=== PATIENT | male | born 1985 | race Caucasian/White ===

== ENCOUNTER → 2016-11-28 | Day surgery (SDC) | payer OTHER ==
[~2016-11-28] MED LIST: BUPIVACAINE/EPINEPHRINE 0.5% PF 30 ML VIAL ONE; IBUP800T23 PO; KETOROLAC TROMETHAMINE 30 MG/ML (IVP) VIAL IV PUSH ONE; LACTATED RINGER'S 1000 ML INJ 1,000 ML ONE; LORT5TAB PO; MEPERIDINE HCL 25 MG/ML VIAL ONE; MIDAZOLAM HCL 2 MG/2 ML VIAL ONE; MORPHINE SULFATE 4 MG/ML INJ ONE; ONDANSETRON HCL 4 MG/2 ML VIAL IV PUSH ONE; PROPOFOL 200 MG/20 ML AMP IV ONE; Z.0.NO CURRENT MEDS; ceFAZolin INJ 1,000 MG VIAL ONE
--- NOTE | 2016-11-29 07:00 | TN ---
cc: MILTON JOHNSON DATE OF SURGERY: 11/28/2016 PREOPERATIVE DIAGNOSIS Left knee medial meniscal tear. POSTOPERATIVE DIAGNOSIS Left knee medial meniscal tear. PROCEDURE Left knee arthroscopic partial medial meniscectomy. SURGEON Dr. Milton Johnson ANESTHESIA General. ESTIMATED BLOOD LOSS Less than 10 cc. TOURNIQUET TIME Zero minutes. COMPLICATIONS None. JUSTIFICATION This patient is a 31-year-old male who injured his left knee. He has had persistence of pain in regards to his condition with failure of conservative treatment. Clinical exam as well as MRI confirmed the above-named findings. The patient was counseled as to the risks, benefits and alternatives to the above-named proposed surgical procedure. He did wish to proceed with surgery. PROCEDURE IN DETAIL A written consent was obtained. The patient was identified by name, taken to the operating room and placed supine on the operating table. General anesthesia was administered as well as well one gram of IV Ancef. The left thigh was carefully placed in a well-padded leg ayala. The left lower extremity prepped and draped using isopropyl alcohol, Hibiclens solution and DuraPrep solution. A standard medial and lateral parapatellar arthroscopic portal was established. The patellofemoral joint revealed no significant chondromalacia. The medial compartment revealed a complex tear of the posterior horn of the medial meniscus. An arthroscopic biter followed by an arthroscopic shaver was introduced into the medial compartment to perform a partial meniscectomy. The meniscal rim was probed and noted to be stable after meniscectomy. There was minimal chondromalacia of the medial femoral condyle. The intercondylar notch revealed the anterior and posterior cruciate ligaments to be intact. The lateral compartment was free of meniscal pathology and chondromalacia. At the conclusion of the surgical procedure 30cc of 0.5% Marcaine with epinephrine was injected into the knee joint. The arthroscopic portals were closed with 3-0 Prolene suture. Sterile dressing was applied. The patient tolerated the procedure well with no intraoperative complications noted. MD JASMIN Santos/OSCAR /3:13 PM /6:43 AM
== END | disposition home or self-care (01) ==
LOC: ESDC 13:47
PROVIDERS: ATTEND Orthopaedic Surgery Sports Medicine
DX: S83.232A Complex tear of medial meniscus, current injury, left knee, initial encounter (principal)
CPT/HCPCS: 01400; 29881; J0690; J1885; J2175; J2250; J2270; J2405; J3010; J7120